=== PATIENT | male | born 1990 | race American Indian/Alaskan Native ===

== ENCOUNTER 2020-08-17 10:55 | Emergency (ER) | payer SELFPAY ==
[2020-08-17 11:24] VITALS: BP 132/81
--- NOTE | 2020-08-17 12:08 | Emergency Department Report ---
ED ENT HPI - General Chief complaint: Dental/Oral Stated complaint: RT SIDE MOUTH PAIN Time Seen by Provider: 08/17/20 12:03 Source: patient Mode of arrival: Ambulatory Limitations: No Limitations - History of Present Illness Initial comments: 30-year-old -Citizen Of [place] male presents to the emergency room stating that his wisdom teeth on his right lower jaw appears to be infected or impacted. Patient states his been taking ibuprofen and Tylenol extra strength without any relief of pain. Patient reports is been going on for several weeks. He does report he has an appointment with a dentist on September 04 but they informed him that this infected there will be anything they can do by pulling them out until the infection is resolved. Patient reports he is not been able to sleep and is having right jaw swelling. Last pain medication was 12 hours ago. He has no past medical history currently takes no medications on a daily basis and has no known drug allergies. Onset/Timin -: week(s) Location: tooth # (32) Severity: severe Severity scale (0 -10): 10 Quality: sharp, constant, other (throbbing ) Consistency: constant Improves with: none Worsens with: none Context- Dental: other (brushing teeth) Associated Symptoms: gum swelling, toothache - Related Data Previous Rx's Medication Instructions Recorded Last Taken Type Amoxicillin/K Clav Tab [Augmentin 1 tab PO Q12HR 10 Days #20 tab 08/17/20 Unknown Rx 875 mg] Ibuprofen [Motrin 800 MG tab] 800 mg PO Q8HR PRN #30 tablet 08/17/20 Unknown Rx traMADoL [Ultram 50 MG tab] 50 mg PO Q6HR PRN #12 tablet 08/17/20 Unknown Rx Allergies Allergy/AdvReac Type Severity Reaction Status Date / Time No Known Allergies Allergy Unverified 08/17/20 11:22 ED Dental HPI - General Chief complaint: Dental/Oral Stated complaint: RT SIDE MOUTH PAIN Time Seen by Provider: 08/17/20 12:03 Source: patient Mode of arrival: Ambulatory Limitations: No Limitations - Related Data Previous Rx's Medication Instructions Recorded Last Taken Type Amoxicillin/K Clav Tab [Augmentin 1 tab PO Q12HR 10 Days #20 tab 08/17/20 Unknown Rx 875 mg] Ibuprofen [Motrin 800 MG tab] 800 mg PO Q8HR PRN #30 tablet 08/17/20 Unknown Rx traMADoL [Ultram 50 MG tab] 50 mg PO Q6HR PRN #12 tablet 08/17/20 Unknown Rx Allergies Allergy/AdvReac Type Severity Reaction Status Date / Time No Known Allergies Allergy Unverified 08/17/20 11:22 ED Review of Systems ROS: Stated complaint: RT SIDE MOUTH PAIN Other details as noted in HPI Comment: All other systems reviewed and negative ED Past Medical Hx - Past Medical History Previous Medical History?: No - Surgical History Past Surgical History?: No - Medications Home Medications: Home Medications Medication Instructions Recorded Confirmed Last Taken Type Amoxicillin/K Clav Tab [Augmentin 1 tab PO Q12HR 10 Days #20 tab 08/17/20 Unknown Rx 875 mg] Ibuprofen [Motrin 800 MG tab] 800 mg PO Q8HR PRN #30 tablet 08/17/20 Unknown Rx traMADoL [Ultram 50 MG tab] 50 mg PO Q6HR PRN #12 tablet 08/17/20 Unknown Rx ED Physical Exam - General Limitations: No Limitations General appearance: alert - Head Head exam: Present: atraumatic, normocephalic - Eye Eye exam: Present: normal appearance - Expanded ENT Exam Expanded Teeth exam: Present: dental tenderness # (32), gingival enlargement - Neck Neck exam: Present: normal inspection, full ROM - Respiratory Respiratory exam: Absent: accessory muscle use - Neurological Exam Neurological exam: Present: alert, oriented X3, normal gait - Psychiatric Psychiatric exam: Present: normal affect, normal mood - Skin Skin exam: Present: warm, dry, intact, normal color. Absent: rash ED Course Vital Signs 08/17/20 11:23 Temperature 98.2 F Pulse Rate 87 Respiratory 18 Rate Blood Pressure 132/81 [Right] O2 Sat by Pulse 97 Oximetry ED Medical Decision Making - Medical Decision Making 30-year-old -Citizen Of [place] male presents to the emergency room stating that his wisdom teeth on his right lower jaw appears to be infected or impacted. Patient states his been taking ibuprofen and Tylenol extra strength without any relief of pain. Patient reports is been going on for several weeks. He does report he has an appointment with a dentist on September 04 but they informed him that this infected there will be anything they can do by pulling them out until the infection is resolved. Patient reports he is not been able to sleep and is having right jaw swelling. Last pain medication was 12 hours ago. He has no past medical history currently takes no medications on a daily basis and has no known drug allergies. Patient will be discharged home on Augmentin 975 twice a day for 10 days dispense 20. I will place patient on ibuprofen and a few tramadol for pain management. Patient is to keep his appointment with the dentist on September 04. Discussed with patient do not operate heavy machinery while taking tramadol. Critical care attestation.: If time is entered above; I have spent that time in minutes in the direct care of this critically ill patient, excluding procedure time. ED Disposition Clinical Impression: Abscess, dental Disposition: DC-01 TO HOME OR SELFCARE Is pt being admited?: No Does the pt Need Aspirin: No Condition: Stable Instructions: Dental Abscess (ED) Additional Instructions: Complete antibiotics as prescribed. Take pain medication as needed. Do not operate heavy machinery while taking medications. Prescriptions: Amoxicillin/K Clav Tab [Augmentin 875 mg] 1 tab PO Q12HR 10 Days #20 tab Ibuprofen [Motrin 800 MG tab] 800 mg PO Q8HR PRN #30 tablet PRN Reason: Pain , Severe (7-10) traMADoL [Ultram 50 MG tab] 50 mg PO Q6HR PRN #12 tablet PRN Reason: Pain Referrals: [facility] [Outside] - 3-5 Days [facility] [Outside] - 3-5 Days Forms: Work/School Release Form(ED)
== END 2020-08-17 13:01 | disposition home or self-care (01) ==
LOC: ED 10:55
DX: K04.7 Periapical abscess without sinus (principal); Z79.1 Long term (current) use of non-steroidal anti-inflammatories (NSAID); Z79.2 Long term (current) use of antibiotics; Z79.899 Other long term (current) drug therapy
CPT/HCPCS: 99281

== ENCOUNTER 2020-08-23 09:09 | Emergency (ER) | payer SELFPAY ==
[2020-08-23] MEDS ORDERED: dexAMETHasone 20 MG/5 ML VIAL IM STA (10:38)
--- NOTE | 2020-08-23 10:44 | Emergency Department Report ---
ED ENT HPI - General Chief complaint: Sore Throat Stated complaint: THROAT PAIN Time Seen by Provider: 08/23/20 10:22 Source: patient Mode of arrival: Ambulatory Limitations: No Limitations - History of Present Illness Initial comments: Chief complaint: Sore throat HPI: This is a 30-year-old healthy male who was treated for tooth abscess. This hospital 6 days ago with Augmentin. He is having difficulty swallowing. He said it is hard to open his mouth. He wants to be able to eat food comfortably. He denies shortness of breath. Patient has infected tooth at the area of the tooth #1. MD complaint: tooth pain, sore throat, difficulty swallowing -: Gradual, week(s) (1) Severity: mild Consistency: constant Worsens with: swallowing Context- Dental: other (Recently treated for dental abscess) - Related Data Previous Rx's Medication Instructions Recorded Last Taken Type Amoxicillin/K Clav Tab [Augmentin 1 tab PO Q12HR 10 Days #20 tab 08/17/20 Unknown Rx 875 mg] Ibuprofen [Motrin 800 MG tab] 800 mg PO Q8HR PRN #30 tablet 08/17/20 Unknown Rx traMADoL [Ultram 50 MG tab] 50 mg PO Q6HR PRN #12 tablet 08/17/20 Unknown Rx Allergies Allergy/AdvReac Type Severity Reaction Status Date / Time amoxicillin Allergy Swelling Verified 08/23/20 09:27 ED Dental HPI - General Chief complaint: Sore Throat Stated complaint: THROAT PAIN Time Seen by Provider: 08/23/20 10:22 Source: patient Mode of arrival: Ambulatory Limitations: No Limitations - Related Data Previous Rx's Medication Instructions Recorded Last Taken Type Amoxicillin/K Clav Tab [Augmentin 1 tab PO Q12HR 10 Days #20 tab 08/17/20 Unknown Rx 875 mg] Ibuprofen [Motrin 800 MG tab] 800 mg PO Q8HR PRN #30 tablet 08/17/20 Unknown Rx traMADoL [Ultram 50 MG tab] 50 mg PO Q6HR PRN #12 tablet 08/17/20 Unknown Rx Allergies Allergy/AdvReac Type Severity Reaction Status Date / Time amoxicillin Allergy Swelling Verified 08/23/20 09:27 ED Review of Systems ROS: Stated complaint: THROAT PAIN Other details as noted in HPI Constitutional: denies: fever, malaise Respiratory: denies: cough, shortness of breath Gastrointestinal: denies: abdominal pain, nausea, vomiting Musculoskeletal: denies: back pain ED Past Medical Hx - Past Medical History Previous Medical History?: No - Surgical History Past Surgical History?: No - Social History Smoking Status: Never Smoker Substance Use Type: None - Medications Home Medications: Home Medications Medication Instructions Recorded Confirmed Last Taken Type Amoxicillin/K Clav Tab [Augmentin 1 tab PO Q12HR 10 Days #20 tab 08/17/20 Unknown Rx 875 mg] Ibuprofen [Motrin 800 MG tab] 800 mg PO Q8HR PRN #30 tablet 08/17/20 Unknown Rx traMADoL [Ultram 50 MG tab] 50 mg PO Q6HR PRN #12 tablet 08/17/20 Unknown Rx ED Physical Exam - General Limitations: No Limitations General appearance: alert, in no apparent distress, other (Patient appears well. Normal voice.) - Head Head exam: Present: atraumatic, normocephalic - ENT ENT exam: Present: other (Normal tongue size, sublingual region without edema. There is dental caries at tooth #1 and 2 without gum swelling patient is able to open mouth 2.5 cm finger breadwidth) - Neck Neck exam: Present: normal inspection, full ROM, lymphadenopathy, other (tender lymph nodes right submandibular region, FROM, no neck edema evident) - Respiratory Respiratory exam: Present: respiratory distress - Neurological Exam Neurological exam: Present: alert, oriented X3 - Psychiatric Psychiatric exam: Present: normal affect, normal mood - Skin Skin exam: Present: warm, dry, intact, normal color, rash ED Course Vital Signs 08/23/20 09:27 Temperature 98.6 F Pulse Rate 78 Respiratory 16 Rate Blood Pressure 138/93 O2 Sat by Pulse 98 Oximetry ED Medical Decision Making - Medical Decision Making This is an 30-year-old male who presents with difficulty opening mouth sore throat after being treated for tooth infection with Augmentin. Patient has normal exam with exception of tender lymph right submandibular region. Patient has mild trismus. Encouraged to continue Augmentin. He has follow-up with dentist in 1 week. Patient was given IM Decadron for comfort supportive care. No indication of impending airway compromise or Raghu angina. Critical care attestation.: If time is entered above; I have spent that time in minutes in the direct care of this critically ill patient, excluding procedure time. ED Disposition Clinical Impression: Abscess, dental Disposition: DC- TO HOME OR SELFCARE Is pt being admited?: No Does the pt Need Aspirin: No Condition: Stable Instructions: Dental Abscess (ED)
[2020-08-23 10:53] VITALS: BP 147/80
== END 2020-08-23 10:53 | disposition home or self-care (01) ==
LOC: ED 09:09
DX: K04.7 Periapical abscess without sinus (principal); Z79.1 Long term (current) use of non-steroidal anti-inflammatories (NSAID); Z79.2 Long term (current) use of antibiotics; Z79.899 Other long term (current) drug therapy; Z88.1 Allergy status to other antibiotic agents
CPT/HCPCS: 96372; 99282; J1100